=== PATIENT | male | born 1980 | race Caucasian/White ===

== ENCOUNTER 2018-06-12 21:03 | Observation (INO) | payer OTHER ==
--- NOTE | 2018-06-12 21:17 | C.PDOC ---
History Of Present Illness Patient presents to the ER with a complaint of chest discomfort, cough, SOB, and sore throat that began today, associated with some nausea and vomiting yellow mucous this morning. He saw his PMD who thought he might have strep throat, he also gave him a nebulizer for his cough and mild wheezing. While driving home he began having chest tightness and SOB which prompted him to call 911. Patient describes the pain as a dull aching tightness and is currently speaking in complete sentences. Denies fever or chills. Time Seen by Provider: 06/12/18 21:06 History Per: Patient History/Exam Limitations: no limitations Onset/Duration Of Symptoms: Hrs Current Symptoms Are (Timing): Still Present Context: Other Severity: Moderate Pain Scale Rating Of: 5 Quality: Dull, Tightness, Pressure Associated Symptoms: Dyspnea Modifying Factors: None Exacerbating Factors: Deep Breathing Alleviating Factors: None Recent travel outside of the [place]: No Additional History Per: Patient Past Medical History Reviewed: Historical Data, Nursing Documentation, Vital Signs Vital Signs: Last Vital Signs Temp 98 F 06/12/18 21:17 Pulse 93 H 06/12/18 23:10 Resp 22 06/12/18 23:10 BP 153/75 H 06/12/18 23:10 Pulse Ox 95 06/12/18 23:10 Family History: States: No Known Family Hx Review Of Systems Constitutional: Negative for: Fever, Chills Eyes: Negative for: Redness ENT: Positive for: Throat Pain Cardiovascular: Positive for: Chest Pain Respiratory: Positive for: Cough, Shortness of Breath. Negative for: Wheezing Gastrointestinal: Positive for: Nausea, Vomiting, Abdominal Pain Genitourinary: Negative for: Dysuria Musculoskeletal: Negative for: Back Pain Skin: Negative for: Rash (psoriatic lessions both ankles) Neurological: Positive for: Weakness (mild left sided weakness, Chronic from previous stroke) Psych: Negative for: Anxiety Physical Exam - Physical Exam Appears: Non-toxic Skin: Warm, Dry Head: Normacephalic Eye(s): bilateral: Normal Inspection Oral Mucosa: Moist Throat: No Erythema, No Exudate Neck: Supple Chest: Symmetrical, Other (sternotomy scar) Cardiovascular: Rhythm Regular (avr click) Respiratory: Rhonchi (few), Wheezing (few) Gastrointestinal/Abdominal: Soft, Tenderness (mild, diffuse), No Distention, No Guarding, No Rebound Back: Normal Inspection Extremity: Normal ROM, No Tenderness, No Pedal Edema Extremity: Bilateral: Atraumatic, Normal ROM Pulses: Left Dorsalis Pedis: Normal, Right Dorsalis Pedis: Normal Neurological/Psych: Oriented x3, Normal Speech, Normal Cognition Gait: Steady ED Course And Treatment - Laboratory Results Result Diagrams: 06/12/18 22:52 06/12/18 22:52 ECG: Interpreted By Me, Viewed By Me ECG Rhythm: Sinus Rhythm (99), Nonspecific Changes (lvh) Pulse Ox Interpretation: Normal - Radiology CXR: Interpreted by Me, Viewed By Me CXR Interpretation: Yes: Cardiomegaly, Other (avr,sternotomy). No: Infiltrates , Fracture, Pnemothorax Disposition Discussed With .: Imani Boucher Comment: accepted the pt on his service and took over the care at 11:26 PM Doctor Will See Patient In The: Hospital Counseled Patient/Family Regarding: Studies Performed, Diagnosis - Disposition Disposition: HOSPITALIZED Disposition Time: 21:20 Condition: FAIR - POA Present On Arrival: None - Clinical Impression Clinical Impression: Chest pain, Dyspnea Decision To Admit - Pt Status Changed To: Hospital Disposition Of: Inpatient - Admit Certification Admit to Inpatient:: After my assessment, the patient will require hospitalization for at least two midnights. This is because of the severity of symptoms shown, intensity of services needed, and/or the medical risk in this patient being treated as an outpatient. - InPatient: Physician Admission Certification: I certify that this patient requires 2 or more midnights of care for the following reason:: After my assessment, the patient will require hospitalization for at least two midnights. This is because of the severity of symptoms shown, intensity of services needed, and/or the medical risk in this patient being treated as an outpatient. - . Bed Request Type: Telemetry Admitting Physician: Imani Boucher Patient Diagnosis: Chest pain, Dyspnea
[2018-06-12] MEDS ORDERED: Albuterol-Ipratrop 3 mg / 0.5 (3 ml) UD ONE ×2 (21:30→22:02)
[2018-06-12] MEDS: Albuterol-Ipratrop 3 mg / 0.5 (3 ml) UD IH SCH ×3 (21:44→22:26)
[2018-06-12] MEDS ORDERED: Aspirin 325 mg EC Tablets PO STA (22:45)
[2018-06-12 22:58] LABS: BASO % 0.5 % (0.0-2.0); EOS # 0.1 K/uL (0.0-0.7); HEMOGLOBIN 14.8 g/dL (12.0-18.0); LYMPH % 13.8 % (20.0-40.0); MEAN CELL VOLUME 86.3 fL (80.0-94.0); MEAN CORPUSCULAR HGB CONC 33.6 g/dL (33.0-37.0); MEAN PLATELET VOLUME 8.1 fL (7.2-11.7); MONO # 0.4 K/uL (0.0-0.8); MONO % 4.9 % (0.0-10.0); NEUT # 5.7 K/uL (1.8-7.0); NEUT % 78.8 % (50.0-75.0); RBC 5.1 Mil/uL (4.40-5.90); RED CELL DISTRIBUTION WIDTH 13.4 % (11.5-14.5); WHITE BLOOD COUNT 7.2 K/uL (4.8-10.8)
[2018-06-12 23:04] LABS: INR 1.1; PROTHROMBIN TIME 12.4 SECONDS (9.7-12.2)
[2018-06-12 23:10] LABS: ALB/GLOB RATIO 1.5 (1.0-2.1); ALBUMIN 4.7 g/dL (3.5-5.0); ALT/SGPT 87 U/L (21-72); AST/SGOT 77 U/L (17-59); BLOOD UREA NITROGEN 12 mg/dL (9-20); CALCIUM 9.3 mg/dl (8.6-10.4); GFR NON-AFRICAN AMERICAN > 60; LIPASE 57 U/L (23-300)
[2018-06-12] MEDS ORDERED: Aspirin 325 mg EC Tablets PO ONE (23:11)
[2018-06-12 23:14] LABS: URINE AMORPHOUS SEDIMENT RARE /ul (<OCC); URINE BACTERIA RARE (<OCC); URINE BILIRUBIN NEGATIVE (NEGATIVE); URINE BLOOD NEGATIVE (NEGATIVE); URINE CLARITY Hazy (Clear); URINE COLOR Yellow (YELLOW); URINE GLUCOSE (UA) NORMAL (Normal); URINE LEUKOCYTE ESTERASE NEG Leu/uL (Negative); URINE PROTEIN 1+ mg/dL (NEGATIVE)
[2018-06-12 23:22] LABS: B-TYPE NATRIURETIC PEPTIDE 72.5 pg/mL (0-450)
[2018-06-13 00:58] VITALS: RESP 20
[2018-06-13] MEDS: Albuterol-Ipratrop 3 mg / 0.5 (3 ml) UD INH SCH ×2 (02:15→07:20)
[2018-06-13 07:47] LABS: CK-MB 1.91 ng/mL (0.0-3.38)
[2018-06-13 07:55] VITALS: BP 135/72; PULSE 105; TEMP 98; O2SAT 97
--- NOTE | 2018-06-13 10:36 | RAD ---
HISTORY: chest pain COMPARISON: None available. TECHNIQUE: Chest, one view. FINDINGS: Examination limited by habitus and hypoinflation. LUNGS: Mild pulmonary venous congestion. Please note that chest x-ray has limited sensitivity for the detection of pulmonary masses. PLEURA: No significant pleural effusion identified. No definite pneumothorax . CARDIOVASCULAR: Median sternotomy wires. Heart size appears top normal. OSSEOUS STRUCTURES: Degenerative changes. VISUALIZED UPPER ABDOMEN: Unremarkable. OTHER FINDINGS: None. IMPRESSION: Hypoinflation. Mild pulmonary venous congestion.
--- NOTE | 2018-06-13 14:32 | CP.PCM.PN ---
Subjective - Date & Time of Evaluation Date of Evaluation: 06/13/18 Time of Evaluation: 14:26 - Subjective Subjective: PGY3 progress note for Dr. Boucher 38 year old male with past medical history of? presented for CP that began yesterday. Patient developed cough, SOB and chest congestion yesterday. Pt went to see his PMD and was given Abx for possible pharyngitis. On way home, pt developed CP and called ambulance. PMHx: Sx; Social: Objective - Vital Signs/Intake and Output Vital Signs (last 24 hours): Temp Pulse Resp BP Pulse Ox 98.0 F 105 H 20 135/72 97 06/13/18 07:54 06/13/18 07:54 06/13/18 07:54 06/13/18 07:54 06/13/18 07:54 - Labs Labs: 06/12/18 22:52 06/12/18 22:52 PT 12.4 SECONDS (9.7-12.2) H 06/12/18 22:52 INR 1.1 06/12/18 22:52 APTT 33 SECONDS (21-34) 06/12/18 22:52 Assessment and Plan - Assessment and Plan (Free Text) Assessment: 38 y/o male with past medical history of ? is admitted for CP r/o ACS CP R/O ACS - Initial trops and EKG were normal - ProBNp was negative - CXR showed possible mild effusions at bases B/L - Will check serial trops and EKG - will check echo URI - Pt has QT prolongation. Will start pt on Ancef x 5 days - Will check procal Prophylaxis - Pepcid - Lovenox - SCDs All orders and management per Dr. Boucher
--- NOTE | 2018-06-14 09:18 | HP ---
HISTORY OF PRESENT ILLNESS: A 38-year-old male who comes to the hospital complaining of sore throat, weakness, and chest pain. The patient ____ came to the ER for admission. PHYSICAL EXAMINATION: GENERAL: The patient is awake, alert, and oriented. VITAL SIGNS: Temperature 98, pulse 90. HEENT: Within normal limits. NECK: Supple. LUNGS: Clear. CHEST: Symmetrical. HEART: Regular. ABDOMEN: Soft. EXTREMITIES: No edema IMPRESSION: The patient suffered from chest pain when he arrived. The patient was given antibiotics. Echocardiogram. Imani Boucher MD
--- NOTE | 2018-06-15 23:01 | CARD ---
APPROVED REPORT Date of service: 06/13/2018 EKG Measurement Heart [id number] <Conclusion> Normal sinus rhythm Possible Left atrial enlargement Left axis deviation Left ventricular hypertrophy ST & T wave abnormality, consider anterolateral ischemia Prolonged QT Abnormal ECG
== END 2018-06-13 08:00 | disposition left against medical advice (07) ==
LOC: SUPCPDRO 21:03 → C.ER 21:03 → INTOOBSV 23:25 → C.6T 23:25
PROVIDERS: ADMIT Internal Medicine Pulmonary Disease; ATTEND Internal Medicine Pulmonary Disease
DX: R07.89 Other chest pain (principal); J02.9 Acute pharyngitis, unspecified; R06.02 Shortness of breath
CPT/HCPCS: 36415; 71045; 80053; 81001; 83690; 83880; 84484; 85025; 85610; 85730; 93005; 94640; 96374; 99285; G0378; J2405